=== PATIENT | male | born 1945 | race Caucasian/White ===

== ENCOUNTER 2022-12-09 10:30 | Outpatient (RCR) | payer MEDICARE, SELFPAY ==
--- NOTE | 2022-11-30 07:39 | PT.OPEX ---
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 HE STATES, IT'S LIKE IT GRABS ME AND I CAN'T MOVE FOR 3-4 DAYS BUT, EVENTUALLY, IT WORKS IT'S WAY OUT. HE HAS USED A MEDROL DOSE PACK THE LAST TIME THIS HAPPENED ROUGHLY 5MONTHS AGO AND REPORTS SIGNIFICANT DIFFERENCE A RESULT. HE IS HERE TO LEARN WHAT TO DO SO THAT HE CAN KEEP HIMSELF IN GOOD WORKING ORDER. Pain Comments TODAY AT REST 04/16 WHEN FLARED UP -11/14 Date of Last Physician Visit 10/22/22 Current Work Status Retired Occupation PREVIOUSLY OWNED AND STARTED THE [employer] Preferred Name [employer] Precautions Therapy Limitations/Systems Review Not Limited Objective Other/Pertinent Objective Posture Assessment: DECREASED LORDOTIC CURVATURE LUMBAR ROM Flexion: WNL repeated flexion : UNREMARKABLE Extension: WFL repeated ext: UNREMARKABLE Right Sidebend: WNL Left Sidebend: WNL LE MMT : Hip flexion: R 5/5 L /5 Hip Extension: R 4/5 L 4/5 Hip abduction: R 4/5 L4 /5 knee extension: R 5/5 L 5/5 Knee Flexion: R 5/5 L 5/5 JOINT MOBILITY/PALPATION: L3-5 FACET HYPOMOBILITY (RIGHT) SPECIAL TESTS Straight leg raise: (-) Crossed straight leg raise: (- ) Slump test: (-) SI/HIPI tests MUKUL (-) FADIR (-) SCOUR (-) Gillet Test: (-) Standing forward bend Test: (- ) Gapping and Compression test: (-) TX: SUPINE TRUNK ROTATION 3 X 15 SEC SUPINE SKTC R/L 3 X 15 SEC SUPINE FIGURE 4 R/L 3 X 15 SEC SUPINE PIRIFORMIS PULL TO OPP SHOULDER 3 X 15 SEC SUPINE BRIDGE X 10 HOLD 5 SIDELYING CLAM R/L (GREEN TB) X 15 PRONE ALT UE/LE R/L X 10 HOLD 3 SEC Assessment Assessment/Impression PATIENT IS A [address] MAHSA MARROQUIN TO EVAL AND TREAT LUMBAR DDD, LUMBAR DISCOGENIC PAIN, LUMBAR FACET ARTHROPATHY. PMHX IS UNREMARKABLE EXCEPT SEVERAL EPISODE OF DEBILITATING BACK PAIN AND HLD. HE IS A RETIRED ST[employer] WHO ENJOYS PLAYING GOLF AND RIDING HIS BIKE. HE WILL LEAVING FOR [place] IN ~1 MONTH FOR THE WINTER AND IS HERE TO LEARN HOW TO BETTER CARE OF HIS BACK . HE PERFORMS DAILY STRETCHES TO ADDRESS THE MORNING JOINT STIFFNESS WELL PLACES EMPHASIS ON REMAINING ACTIVE. HE HAS A NEGATIVE SLR, SLUMP TEST DENYING AND RADICULOPATHY WITH NORMAL RIGHT TO LEFT LEG AND HIP STRENGTH EXCEPT FOR HIP ABD AND EXT MEASURING 4/5. HE FLEXIBILITY IS OUTSTANDING FOR A MAN HIS AGE NOTING GOOD HAMSTRING AND ER/IR BILATERALLY. NOTABLE HYPOMOBILITY AT L3-5 RIGHT> LEFT FACET AND HYPERTROPHY NOTED RIGHT MID BACK PARASPINALS WELL RIGHT LOWER LUMBAR REGION. HE DOES NOT C/O PAIN TODAY AND GENERALLY DOES NOT HAVE DAILY PAIN ISSUES. HE HAD A FLARE UP ~5 MONTHS AGO WHERE HE WAS PRESCRIBED A MEDROL DOSE BACK THE GREATLY IMPROVED HIS PAIN AND DYSFUNCTION. WE DISCUSSED BASIC ANATOMY OF THE SPINE AND HIPS WITH THE PLAN OF CARE TO INCLUDE HOW TO ADDRESS HIS SYMPTOMS WHEN FLARED UP. HE IS APPROPRIATE FOR SKILLED PHYSICAL THERAPY FOR EDUCATION AND INSTRUCTION OF THE PATHOPHYSIOLOGY OF HIS DX'S, SYMPTOM MGMT, CORE AND BLE STRENGTHENING. PATIENT VERBALIZED UNDERSTANDING OF ALL SKILLED INSTRUCTION AND AGREEABLE TO POC AND FREQ. Primary Functional Limitations WHEN AGGRAVATED: BENDING, WALKING, STDG Plan of Care Rehabilitation Potential Excellent Physical Therapy Goals IN 4 VISITS: 1. PATIENT WILL VERBALIZE GOOD UNDERSTANDING OF SYMPTOM MGMT AND BODY MECHANICS FOR LIFTING AND REACHING. 2. PATIENT WILL IMPROVE HIS BLE AND CORE STRENGTH TO DECREASE TORQUE STRESS TO IMPROVE TOLERANCE FOR PROLONGED STANDING OR ACTIVITIES LAST >45MIN 3. PATIENT WILL BE INDEPENDENT WITH HEP AND THE ABILITY TO PROGRESS FOR CONTINUED STRENGTHENING AND MOBILITY Coordination/Communication With Referral Source Treatment Plan/Direct Interventions Heat,Joint Mobilization,Manual Therapy,Neuromuscular Re-ed, Therapeutic Activities, Therapeutic Exercises,Traction (Mechanical) Patient Will Be Discharged From Therapy Completion of LTG(s), Independently Progressing Discharge Plan Comments DISCHARGE TO SELF WHEN GOALS MET Evaluation Billing Untimed Code Treatment Minutes 15 PT Eval No Charge No Complexity Moderate Certification Information Initial Certification Date 11/17/22 Ending Certification Date 02/14/23 Provider Signature Shows Agreement With POC & Medical Necessity Physician Signature & Date Requested Please Sign/Date Here Physician Comment/Change : Physician NPI Number #
== END 2022-12-13 09:02 | disposition home or self-care (01) ==
PROVIDERS: PCP Surgery; Visit Provider Family Medicine
DX: M51.36 Other intervertebral disc degeneration, lumbar region (principal); M54.59 Other low back pain; M47.816 Spondylosis without myelopathy or radiculopathy, lumbar region; Z51.89 Encounter for other specified aftercare
CPT/HCPCS: 97110; 97162